=== PATIENT | male | born 1940 | race Caucasian/White ===

== ENCOUNTER 2020-09-14 08:51 | Outpatient (CLI) | payer MEDICARE | END 2020-09-14 08:52 | disposition home or self-care (01) | LOC: CSHWCC 08:51 | PROVIDERS: ATTEND Nurse Practitioner Family | DX: L97.412 Non-pressure chronic ulcer of right heel and midfoot with fat layer exposed (principal); E78.2 Mixed hyperlipidemia; I10 Essential (primary) hypertension; I25.810 Atherosclerosis of coronary artery bypass graft(s) without angina pectoris; I48.91 Unspecified atrial fibrillation; I87.2 Venous insufficiency (chronic) (peripheral); L97.414 Non-pressure chronic ulcer of right heel and midfoot with necrosis of bone; L97.419 Non-pressure chronic ulcer of right heel and midfoot with unspecified severity; M86.671 Other chronic osteomyelitis, right ankle and foot; R60.1 Generalized edema; Z85.118 Personal history of other malignant neoplasm of bronchus and lung | CPT/HCPCS: 99213; G0463 ==

== ENCOUNTER 2020-10-12 11:15 | Outpatient (CLI) | payer MEDICARE | END 2020-10-12 11:16 | disposition home or self-care (01) | LOC: CSHWCC 11:15 | PROVIDERS: ATTEND Nurse Practitioner Family | DX: L97.414 Non-pressure chronic ulcer of right heel and midfoot with necrosis of bone (principal); L97.412 Non-pressure chronic ulcer of right heel and midfoot with fat layer exposed; R60.0 Localized edema; E78.2 Mixed hyperlipidemia; I10 Essential (primary) hypertension; I25.810 Atherosclerosis of coronary artery bypass graft(s) without angina pectoris; I48.91 Unspecified atrial fibrillation; I87.2 Venous insufficiency (chronic) (peripheral); M86.671 Other chronic osteomyelitis, right ankle and foot; Z85.118 Personal history of other malignant neoplasm of bronchus and lung | CPT/HCPCS: 97139; G0463; 99213 ==

== ENCOUNTER 2020-11-09 11:25 | Outpatient (CLI) | payer MEDICARE | END 2020-11-09 11:26 | disposition home or self-care (01) | LOC: CSHWCC 11:25 | PROVIDERS: ATTEND Nurse Practitioner Family | DX: I87.2 Venous insufficiency (chronic) (peripheral) (principal); L97.412 Non-pressure chronic ulcer of right heel and midfoot with fat layer exposed; L97.414 Non-pressure chronic ulcer of right heel and midfoot with necrosis of bone; I10 Essential (primary) hypertension; I25.810 Atherosclerosis of coronary artery bypass graft(s) without angina pectoris; I48.91 Unspecified atrial fibrillation; E78.2 Mixed hyperlipidemia; M86.671 Other chronic osteomyelitis, right ankle and foot; R60.1 Generalized edema; R60.0 Localized edema; Z85.118 Personal history of other malignant neoplasm of bronchus and lung ==